=== PATIENT | male | born 1970 | race Caucasian/White ===

== ENCOUNTER 2017-03-19 11:28 | Emergency (ER) | payer MEDICAID, OTHER ==
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
[2017-03-19 12:02] VITALS: BP 130/89
== END 2017-03-19 12:33 | disposition home or self-care (01) ==
LOC: UCCORT 11:28
DX: S50.312A Abrasion of left elbow, initial encounter (principal); S80.212A Abrasion, left knee, initial encounter; L03.114 Cellulitis of left upper limb; L03.116 Cellulitis of left lower limb; V29.9XXA Motorcycle rider (driver) (passenger) injured in unspecified traffic accident, initial encounter; Y92.9 Unspecified place or not applicable
CPT/HCPCS: 87070; 87077; 87205; 99204; G0463

== ENCOUNTER 2019-10-15 13:37 | Emergency (ER) | payer MEDICAID, OTHER ==
[2019-10-15 14:09] VITALS: BP 137/87
--- NOTE | 2019-10-15 14:41 | UC ---
Complaint Male HPI - HPI Summary HPI Summary: 49 yo man with about a month's hx of difficulty initiating a urine stream, slow flow, increasing nocturia. He does not have abdominal or rectal pain, nor dysuria. Not sexually active in some time. Symptoms are variable, and there are times when his urine flows more freely. FH of CA colon in his GF, and his brother of CA at age 46, but he does not know the primary source. He does not have a primary care doctor. - History of Current Complaint Chief Complaint: UCGU Stated Complaint: URINARY Time Seen by Provider: 10/15/19 14:30 Hx Obtained From: Patient Onset/Duration: Gradual Onset Timing: Intermittent Severity Initially: Moderate Severity Currently: Moderate Pain Intensity: 0 Location: None Aggravating Factor(s): Straining Associated Signs And Symptoms: Negative: Back Pain, Fever, Hematuria, Dysuria, Blood in Stool, Rectal Pain, Nausea - Risk Factors Testicular Torsion: Negative - Allergies/Home Medications Allergies/Adverse Reactions: Allergies Allergy/AdvReac Type Severity Reaction Status Date / Time No Known Allergies Allergy Verified 10/15/19 14:03 Home Medications: Home Medications NK [No Home Medications Reported] 10/15/19 [History Confirmed 10/15/19] PMH/Surg Hx/FS Hx/Imm Hx Previously Healthy: Yes - No regular medical care; smokes heavily - Surgical History Surgical History: None - Family History Known Family History: Positive: Other - GF of CA colon, brother age 46 of CA, unknown primary - Social History Alcohol Use: None Substance Use Type: None Smoking Status (MU): Heavy Every Day Tobacco Smoker Type: Cigarettes Amount Used/How Often: 3/4 PPD Length of Time of Smoking/Using Tobacco: since age 15 Have You Smoked in the Last Year: Yes Review of Systems All Other Systems Reviewed And Are Negative: Yes Constitutional: Positive: Negative Skin: Positive: Negative Eyes: Positive: Negative Respiratory: Positive: Negative Cardiovascular: Positive: Negative Gastrointestinal: Positive: Negative Genitourinary: Positive: Frequency, Urgency. Negative: Vaginal/Penile Discharge , Vaginal/Penile Tenderness Motor: Positive: Negative Neurovascular: Positive: Negative Musculoskeletal: Positive: Negative Neurological/Mental Status: Positive: Negative Psychological: Positive: Negative Is Patient Immunocompromised?: No Physical Exam Triage Information Reviewed: Yes Appearance: Well-Appearing, No Pain Distress Vital Signs: Initial Vital Signs Temp 97.8 F 10/15/19 14:03 Pulse 67 10/15/19 14:03 Resp 16 10/15/19 14:03 BP 137/87 10/15/19 14:03 Pulse Ox 100 10/15/19 14:03 ENT: Positive: Pharynx normal Neck: Positive: Supple, Nontender, No Lymphadenopathy Respiratory: Positive: Lungs clear, Normal breath sounds Cardiovascular: Positive: RRR, No Murmur Abdomen Description: Positive: Nontender, No Organomegaly, Soft, Other: - no percussible bladder or suprapubic tenderness. Negative: CVA Tenderness (R), CVA Tenderness (L) Male Genital Exam: Positive: Other - Rectal/prostate exam declined by patient. Musculoskeletal Exam: Normal Neurological Exam: Normal Psychological Exam: Normal Skin Exam: Normal Diagnostics - Laboratory Lab Results: UA normal. Complaint Male Course/Dx - Course Course Of Treatment: Will send urine for culture. Advised urology or PMD evaluation --needs work up for BPH v more ominous concern. He will establish care with a PMD. - Differential Dx/Diagnosis Differential Diagnosis/HQI/PQRI: Prostatitis, Urinary Tract Infection, Other - BPH Provider Diagnosis: Prostatic hypertrophy Discharge ED - Sign-Out/Discharge Documenting (check all that apply): Patient Departure All imaging exams completed and their final reports reviewed: No Studies - Discharge Plan Condition: Stable Disposition: HOME Patient Education Materials: Enlarged Prostate (BPH) (ED) Referrals: No Primary Care Phys,NOPCP [Primary Care Provider] - Shyanne Garrido MD [Medical Doctor] - Additional Instructions: The symptoms you describe are suggestive of a large prostate; some testing is needed by a primary doctor or a urologist. This can usually be treated with medications, but testing is needed to confirm the diagnosis. You will be called if a urine infection is identified. Please schedule a visit with Dr. Garrido, urologist. - Billing Disposition and Condition Condition: STABLE Disposition: Home
--- NOTE | 2019-10-17 07:24 | UC ---
- Progress Note Progress Note: Was seen here on 10/15 with urinary symptoms. Please call to advise that culture is negative, and ensure that he has scheduled urology follow up. He has symptoms related to his prostate. Course/Dx - Diagnoses Provider Diagnoses: Prostatic hypertrophy Discharge ED - Sign-Out/Discharge Documenting (check all that apply): Post-Discharge Follow Up All imaging exams completed and their final reports reviewed: No Studies - Discharge Plan Condition: Stable Disposition: HOME Patient Education Materials: Enlarged Prostate (BPH) (ED) Referrals: Shyanne Garrido MD [Medical Doctor] - No Primary Care Phys,NOPCP [Primary Care Provider] - Additional Instructions: The symptoms you describe are suggestive of a large prostate; some testing is needed by a primary doctor or a urologist. This can usually be treated with medications, but testing is needed to confirm the diagnosis. You will be called if a urine infection is identified. Please schedule a visit with Dr. Garrido, urologist. - Billing Disposition and Condition Condition: STABLE Disposition: Home
== END 2019-10-15 15:05 | disposition home or self-care (01) ==
LOC: UCCORT 13:37
DX: N40.0 Benign prostatic hyperplasia without lower urinary tract symptoms (principal); F17.210 Nicotine dependence, cigarettes, uncomplicated
CPT/HCPCS: 81003; 87086; 99211; G0463